=== PATIENT | male | born 1970 | race Caucasian/White ===

== ENCOUNTER 2021-12-23 00:41 | Emergency (ER) | payer OTHER ==
[2021-12-23] MEDS ORDERED: Fluorescein 1 MG Ophth Strip EYELF STA (04:39)
[2021-12-23] MEDS ORDERED: Proparacaine 0.5% Ophth Soln 15 ML Bottle EYELF STA (04:40)
[2021-12-23] MEDS ORDERED: Erythromycin Base 0.5% Ophth Oint 1 GM Tube EYELF STA (04:59)
== END 2021-12-23 05:13 | disposition home or self-care (01) ==
LOC: JD.ED 00:41
DX: S05.02XA Injury of conjunctiva and corneal abrasion without foreign body, left eye, initial encounter (principal); Z86.16 Personal history of COVID-19; W22.09XA Striking against other stationary object, initial encounter
CPT/HCPCS: 99283; A9270